=== PATIENT | female | born 1970 | race Caucasian/White ===

== ENCOUNTER → 2016-11-16 | Outpatient (CLI) | payer BC ==
[~2016-11-16] MED LIST: ALBUAER2 INH; CHOL100010 PO; CLC/300 PO; FLNIN NAE; FLUO20CA35 PO
[2016-11-16 11:12] LABS: ALT/SGPT 31 U/L (12-78); BLOOD UREA NITROGEN 8 mg/dl (7-18); BUN/CREATININE RATIO 9.4 (10-20); CARBON DIOXIDE 26 mmol/L (21-32); CHLORIDE 104 mmol/L (98-107); CHOLESTEROL 214 mg/dl (0-200); CREATININE 0.82 mg/dl (0.60-1.20); GLUCOSE 118 mg/dl (70-99); SODIUM 141 mmol/L (136-145)
[2016-11-16 11:15] LABS: ALB/GLOB RATIO 0.9 (0.9-2); ALKALINE PHOSPHATASE 53 U/L (45-117); AST/SGOT 15 U/L (15-37); CHOLESTEROL/HDL RATIO 5.1; HDL CHOLESTEROL 42 mg/dl; LDL CHOLESTEROL CALCULATED 115 mg/dl; TRIGLYCERIDES 285 mg/dl (0-150); VERY LOW DENSITY LIPOPROT CALC 57 mg/dl
[2016-11-16 11:32] LABS: ESTIMATED AVERAGE GLUCOSE 126 mg/dl; HA1C FLAG Normal (Normal)
== END | disposition home or self-care (01) ==
LOC: C.LABBC 07:43
PROVIDERS: ATTEND Family Medicine
DX: E55.9 Vitamin D deficiency, unspecified (principal); E78.5 Hyperlipidemia, unspecified; R73.09 Other abnormal glucose

== ENCOUNTER → 2017-02-16 | Outpatient (CLI) | payer BC ==
--- NOTE | 2017-02-16 16:33 | MAMMOGRAPHY REPORT ---
BILATERAL DIGITAL SCREENING MAMMOGRAM TOMOSYNTHESIS WITH CAD: 02/16/2017 CLINICAL HISTORY: Routine screening. Patient has no complaints. TECHNIQUE: Breast tomosynthesis in addition to standard 2D mammography was performed. Current study was also evaluated with a Computer Aided Detection (CAD) system. COMPARISON: Comparison is made to exam dated: 06/21/2011 mammogram - [facility]. BREAST COMPOSITION: There are scattered areas of fibroglandular density in both breasts. FINDINGS: No suspicious masses, calcifications, or areas of architectural distortion are noted in e ither breast. There has been no significant interval change compared to prior exams. Again noted ar e post surgical changes from bilateral reduction mammoplasty. Scattered bilateral benign-appearing calcifications are again noted. IMPRESSION: ACR BI-RADS CATEGORY 2: BENIGN There is no mammographic evidence of malignancy. A 1 year screening mammogram is recommended. The p atient will receive written notification of the results. Approximately 10% of breast cancers are not detected with mammography. A negative mammographic repor t should not delay biopsy if a clinically suggestive mass is present. Tova Craig M.D. ah/:02/16/2017 15:33:34 [employer] Estate Job Titles: Lisy WHITE(Adela)(M), [facility] letter sent: Normal 1/2 BI-RADS Code: ACR BI-RADS Category 2: Benign
== END | disposition home or self-care (01) ==
LOC: C.MAMM 13:39
PROVIDERS: ATTEND Obstetrics & Gynecology
DX: Z12.31 Encounter for screening mammogram for malignant neoplasm of breast (principal)

== ENCOUNTER → 2017-05-14 | Outpatient (CLI) | payer BC | END | disposition home or self-care (01) | LOC: C.PATHSPEC 13:12 | PROVIDERS: ATTEND Dermatology | DX: L57.0 Actinic keratosis (principal) ==

== ENCOUNTER → 2017-07-03 | Outpatient (CLI) | payer BC ==
[2017-07-03 11:31] LABS: ESTIMATED AVERAGE GLUCOSE 117 mg/dl; HA1C FLAG Normal (Normal)
[2017-07-03 14:24] LABS: ALT/SGPT 24 U/L (12-78); BLOOD UREA NITROGEN 10 mg/dl (7-18); BUN/CREATININE RATIO 12.5 (10-20); CALCIUM 9.2 mg/dl (8.5-10.1); CARBON DIOXIDE 25 mmol/L (21-32); CHLORIDE 101 mmol/L (98-107); CHOLESTEROL 87 mg/dl (0-200); CREATININE 0.81 mg/dl (0.60-1.20); GLUCOSE 118 mg/dl (70-99); POTASSIUM 3.6 mmol/L (3.5-5.1); SODIUM 137 mmol/L (136-145)
[2017-07-03 14:44] LABS: ALB/GLOB RATIO 0.9 (0.9-2); ALKALINE PHOSPHATASE 54 U/L (45-117); AST/SGOT 16 U/L (15-37); CHOLESTEROL/HDL RATIO 2.4; HDL CHOLESTEROL 36 mg/dl; LDL CHOLESTEROL CALCULATED 32 mg/dl; TRIGLYCERIDES 97 mg/dl (0-150); VERY LOW DENSITY LIPOPROT CALC 19 mg/dl
== END | disposition home or self-care (01) ==
LOC: C.LABBC 08:58
PROVIDERS: ATTEND Family Medicine
DX: I10 Essential (primary) hypertension (principal); E78.5 Hyperlipidemia, unspecified; R73.03 Prediabetes

== ENCOUNTER → 2017-08-14 | Outpatient (CLI) | payer BC ==
[2017-08-14 14:17] LABS: BLOOD UREA NITROGEN 12 mg/dl (7-18); CALCIUM 9.6 mg/dl (8.5-10.1); CARBON DIOXIDE 26 mmol/L (21-32); CHLORIDE 101 mmol/L (98-107); CREATININE 0.99 mg/dl (0.60-1.20); GLUCOSE 152 mg/dl (70-99); POTASSIUM 3.8 mmol/L (3.5-5.1); SODIUM 135 mmol/L (136-145)
== END | disposition home or self-care (01) ==
LOC: C.LABBC 09:35
PROVIDERS: ATTEND Family Medicine
DX: I10 Essential (primary) hypertension (principal)

== ENCOUNTER → 2018-02-07 | Outpatient (CLI) | payer BC ==
[2018-02-07 11:18] LABS: ALT/SGPT 30 U/L (12-78); BLOOD UREA NITROGEN 11 mg/dl (7-18); CALCIUM 8.9 mg/dl (8.5-10.1); CARBON DIOXIDE 27 mmol/L (21-32); CREATININE 0.99 mg/dl (0.60-1.20); GLUCOSE 130 mg/dl (70-99); POTASSIUM 3.9 mmol/L (3.5-5.1); SODIUM 134 mmol/L (136-145)
[2018-02-07 11:19] LABS: CHOLESTEROL 222 mg/dl (0-200); LDL CHOLESTEROL CALCULATED 139 mg/dl
== END | disposition home or self-care (01) ==
LOC: C.LABBC 07:41
PROVIDERS: ATTEND Family Medicine
DX: E88.81 Metabolic syndrome and other insulin resistance (principal); E78.5 Hyperlipidemia, unspecified

== ENCOUNTER → 2018-06-03 | Outpatient (CLI) | payer BC | END | disposition home or self-care (01) | LOC: C.LAB1850 17:04 | PROVIDERS: ATTEND Family Medicine | DX: R35.0 Frequency of micturition (principal) ==